=== PATIENT | female | born 1950 | race Caucasian/White ===

== ENCOUNTER 2022-12-10 07:30 | Day surgery (SDC) | payer MEDICARE, BC ==
[~2022-12-10] VITALS: Ht 177.8 cm; Wt 104.6 kg
[2022-12-10] VITALS (13 sets, daily range): BP systolic 122–151; BP diastolic 56–81
[2022-12-10] MEDS ORDERED: normal saline 1000ml 1,000 ML IV PRN (07:55)
[2022-12-10] MEDS ORDERED: NO HOME MEDS (07:59)
[2022-12-10 08:35] LABS: BASOPHILS % (AUTO) 0.7 % (0-1); EOSINOPHILS # (AUTO) 0.1 X10'3 (0-0.9); EOSINOPHILS % (AUTO) 3.5 % (0-6); HEMATOCRIT 38.7 % (35.0-45.0); HEMOGLOBIN 13.1 g/dl (12.0-16.0); LYMPHOCYTES % (AUTO) 24.9 % (21-51); MEAN CORPUSCULAR HEMOGLOBIN 32.8 PG (27.0-31.0); MEAN CORPUSCULAR HGB CONC 33.8 g/dL (33.0-36.5); MEAN CORPUSCULAR VOLUME 97.1 FL (78-98); MEAN PLATELET VOLUME 7.7 FL (7.4-10.4); MONOCYTES # (AUTO) 0.5 X10'3 (0-0.9); MONOCYTES % (AUTO) 11.6 % (2-12); NEUTROPHILS # (AUTO) 2.4 X10'3 (1.8-7.7); NEUTROPHILS % (AUTO) 59.3 % (42-75); PLATELET COUNT 173 X10'3 (140-440); RED BLOOD COUNT 3.98 X10'6 (4.20-5.60); RED CELL DISTRIBUTION WIDTH 12.9 % (11.5-14.5)
[2022-12-10 08:49] LABS: ALBUMIN 3.6 G/DL (3.4-5.0); ANION GAP 6 (8-16); BLOOD UREA NITROGEN 16 MG/DL (7-18); BUN/CREATININE RATIO 16.5 (10.0-20.0); CALCIUM 8.5 MG/DL (8.5-10.1); CHLORIDE 106 MMOL/L (99-107); CREATININE 0.97 MG/DL (0.40-0.90); GLUCOSE 98 MG/DL (70-104); POTASSIUM 4.3 MMOL/L (3.5-5.1); SODIUM 141 MMOL/L (135-145); TOTAL CARBON DIOXIDE 29.1 MMOL/L (24-32); eGFR 57 ML/MIN
[2022-12-10] MEDS ORDERED: normal saline 1000ml 1,000 ML IV SCH (10:25)
[2022-12-10] MEDS ORDERED: midazolam 1 mg/ML 2ml injection ONE (10:46)
[2022-12-10] MEDS ORDERED: fentaNYL/PF 50MCG/1 ML 2ML syringe ONE (10:46)
== END 2022-12-10 13:20 | disposition home or self-care (01) ==
LOC: SSTAY O 07:30
PROVIDERS: ATTEND Radiology Vascular & Interventional Radiology
DX: R19.09 Other intra-abdominal and pelvic swelling, mass and lump (principal); C54.1 Malignant neoplasm of endometrium; Z90.710 Acquired absence of both cervix and uterus; Z98.890 Other specified postprocedural states; Z90.722 Acquired absence of ovaries, bilateral; Z85.3 Personal history of malignant neoplasm of breast; Z88.5 Allergy status to narcotic agent; Z79.899 Other long term (current) drug therapy
CPT/HCPCS: 36415; 49180; 77012; 80048; 85025; 85610; J2250; J3010; J7030; 88305; 88341; 88342; A4615

== ENCOUNTER 2023-04-19 18:48 | Emergency (ER) | payer MEDICARE, BC ==
[~2023-04-19] VITALS: Ht 177.8 cm; Wt 92.7 kg
[~2023-04-19 18:48] MED LIST: NO HOME MEDS
[2023-04-19] MEDS ORDERED: bisacodyl 5mg tablet.DR PO PRN (20:35)
[2023-04-19] MEDS ORDERED: magnesium hydroxide 30ml (MOM) UD suspension PO ONE (20:35)
[2023-04-19] MEDS ORDERED: magnesium citrate 296ml oral solution PO ONE (21:15)
[2023-04-19 21:44] VITALS: BP 149/92; PULSE 88; RESP 16; TEMP 98.7; O2SAT 98
--- NOTE | 2023-04-19 21:44 | NUR ---
PT PRODUCED LARGE BM AFTER TAP WATER ENEMA.
--- NOTE | 2023-04-19 23:22 | NUR ---
i agree with assesment of CAD INTERN
== END 2023-04-19 21:45 | disposition home or self-care (01) ==
LOC: ER 18:49
DX: K59.00 Constipation, unspecified (principal); Z88.5 Allergy status to narcotic agent
CPT/HCPCS: 74018; 99284; J7030

== ENCOUNTER 2023-05-06 10:08 | Emergency (ER) | payer MEDICARE, BC ==
[~2023-05-06] VITALS: Ht 177.8 cm; Wt 91.1 kg
[2023-05-06 10:13] VITALS: BP 148/91; PULSE 78; RESP 16; O2SAT 100
[2023-05-06 10:53] LABS: BILIRUBIN,URINE NEGATIVE (Neg); CLARITY,URINE SLIGHTLY CLOUDY (Clear); COLOR,URINE YELLOW (Yellow); GLUCOSE, URINE NEGATIVE (Neg); KETONES,URINE NEGATIVE (Neg); LEUKOCYTE ESTERASE ,URINE MODERATE (Neg); NITRITES, URINE NEGATIVE (Neg); OCCULT BLOOD,URINE SMALL (Neg); PROTEIN,URINE NEGATIVE (Neg); UROBILINOGEN,URINE 0.2 E.U/dL (0.2-1.0)
[2023-05-06 11:07] LABS: UA COLLECTION TYPE CLN CATCH MIDSTREAM
[2023-05-06 11:08] LABS: SQUAMOUS EPITHELIAL CELL,UR MANY /LPF (FEW); WBC,URINE 50-100 /HPF (0-4)
[2023-05-06 11:09] LABS: BACTERIA,URINE 1+ /HPF (Neg); RBC,URINE 0-2 /HPF (0-2)
[2023-05-06 12:23] LABS: BASOPHILS % (AUTO) 0.3 % (0-1); EOSINOPHILS # (AUTO) 0.1 X10'3 (0-0.9); EOSINOPHILS % (AUTO) 3.3 % (0-6); HEMATOCRIT 40.1 % (35.0-45.0); HEMOGLOBIN 13.8 g/dl (12.0-16.0); LYMPHOCYTES # (AUTO) 1.1 X10'3 (1.1-4.8); MEAN CORPUSCULAR HEMOGLOBIN 34.1 PG (27.0-31.0); MEAN CORPUSCULAR HGB CONC 34.4 g/dL (33.0-36.5); MEAN CORPUSCULAR VOLUME 99.1 FL (78-98); MEAN PLATELET VOLUME 7.9 FL (7.4-10.4); MONOCYTES # (AUTO) 0.3 X10'3 (0-0.9); MONOCYTES % (AUTO) 8.3 % (2-12); NEUTROPHILS # (AUTO) 2.5 X10'3 (1.8-7.7); NEUTROPHILS % (AUTO) 62.1 % (42-75); PLATELET COUNT 185 X10'3 (140-440); RED BLOOD COUNT 4.05 X10'6 (4.20-5.60); RED CELL DISTRIBUTION WIDTH 15.4 % (11.5-14.5)
[2023-05-06 12:36] LABS: ALANINE AMINOTRANSFERASE 29 U/L (12-78); ALBUMIN 3.8 G/DL (3.4-5.0); ALKALINE PHOSPHATASE 80 IU/L (46-116); ANION GAP 8 (8-16); ASPARTATE AMINO TRANSFERASE 30 U/L (10-37); BILIRUBIN,TOTAL 0.7 MG/DL (0.1-1.0); BLOOD UREA NITROGEN 8 MG/DL (7-18); BUN/CREATININE RATIO 7.8 (10.0-20.0); CALCIUM 9.3 MG/DL (8.5-10.1); CHLORIDE 103 MMOL/L (99-107); CREATININE 1.02 MG/DL (0.40-0.90); GLUCOSE 94 MG/DL (70-104); LIPASE 43 U/L (16-77); POTASSIUM 3.3 MMOL/L (3.5-5.1); SODIUM 140 MMOL/L (135-145); TOTAL CARBON DIOXIDE 28.7 MMOL/L (24-32); TOTAL PROTEIN 7.8 G/DL (6.4-8.2); eCRCL 55 ML/MIN; eGFR 53 ML/MIN
[2023-05-06] MEDS ORDERED: HYDR-3965 PO (15:10)
[2023-05-06] MEDS ORDERED: CIPR-202 PO (15:10)
[2023-05-06 18:06] VITALS: TEMP 96.5
== END 2023-05-06 18:08 | disposition home or self-care (01) ==
LOC: ER 10:09
DX: N39.0 Urinary tract infection, site not specified (principal); N13.30 Unspecified hydronephrosis; E03.9 Hypothyroidism, unspecified; Z88.5 Allergy status to narcotic agent; Z79.2 Long term (current) use of antibiotics; Z90.710 Acquired absence of both cervix and uterus
CPT/HCPCS: 36415; 74176; 80053; 81001; 83690; 85025; 99284

== ENCOUNTER 2023-07-12 12:36 | Emergency (ER) | payer MEDICARE, BC ==
[~2023-07-12] VITALS: Ht 177.8 cm; Wt 83.4 kg
[2023-07-12 12:42] VITALS: TEMP 97.6
[2023-07-12 14:51] LABS: BASOPHILS % (AUTO) 0.4 % (0-1); EOSINOPHILS # (AUTO) 0.1 X10'3 (0-0.9); EOSINOPHILS % (AUTO) 2.4 % (0-6); HEMATOCRIT 42.4 % (35.0-45.0); HEMOGLOBIN 14.5 g/dl (12.0-16.0); LYMPHOCYTES # (AUTO) 0.8 X10'3 (1.1-4.8); LYMPHOCYTES % (AUTO) 13.5 % (21-51); MEAN CORPUSCULAR HEMOGLOBIN 34.1 PG (27.0-31.0); MEAN CORPUSCULAR HGB CONC 34.2 g/dL (33.0-36.5); MEAN CORPUSCULAR VOLUME 99.8 FL (78-98); MONOCYTES # (AUTO) 0.7 X10'3 (0-0.9); MONOCYTES % (AUTO) 12.3 % (2-12); NEUTROPHILS # (AUTO) 4.3 X10'3 (1.8-7.7); NEUTROPHILS % (AUTO) 71.4 % (42-75); PLATELET COUNT 184 X10'3 (140-440); RED BLOOD COUNT 4.25 X10'6 (4.20-5.60); RED CELL DISTRIBUTION WIDTH 13.9 % (11.5-14.5)
[2023-07-12 15:39] VITALS: BP 125/80; PULSE 88; RESP 18; O2SAT 100
== END 2023-07-12 15:41 | disposition home or self-care (01) ==
LOC: ER 12:37
DX: N89.8 Other specified noninflammatory disorders of vagina (principal); E03.9 Hypothyroidism, unspecified; Z88.5 Allergy status to narcotic agent; Z79.899 Other long term (current) drug therapy
CPT/HCPCS: 36415; 85025; 99283

== ENCOUNTER 2023-07-27 11:04 | Inpatient (IN) | payer MEDICARE, BC ==
[~2023-07-27] VITALS: Ht 177.8 cm; Wt 81.8 kg
[2023-07-27] MEDS: HYDROmorphone 1 mg/ml syringe IV ONE ×2 (12:04→15:38)
[2023-07-27 12:28] LABS: ANION GAP 14 (8-16); BLOOD UREA NITROGEN 35 MG/DL (7-18); BUN/CREATININE RATIO 26.5 (10.0-20.0); CALCIUM 9.8 MG/DL (8.5-10.1); CHLORIDE 89 MMOL/L (99-107); CREATININE 1.32 MG/DL (0.40-0.90); GLUCOSE 159 MG/DL (70-104); LIPASE 47 U/L (16-77); SODIUM 134 MMOL/L (135-145); eCRCL 42 ML/MIN; eGFR 40 ML/MIN
[2023-07-27 12:30] LABS: EOSINOPHILS % (AUTO) 0.2 % (0-6); LYMPHOCYTES # (AUTO) 0.8 X10'3 (1.1-4.8); MEAN PLATELET VOLUME 8.3 FL (7.4-10.4); RED CELL DISTRIBUTION WIDTH 13.5 % (11.5-14.5)
[2023-07-27 12:33] LABS: BASOPHILS % (AUTO) 0.3 % (0-1); HEMATOCRIT 43.9 % (35.0-45.0); HEMOGLOBIN 15.1 g/dl (12.0-16.0); LYMPHOCYTES % (AUTO) 15.4 % (21-51); MEAN CORPUSCULAR HEMOGLOBIN 34.1 PG (27.0-31.0); MEAN CORPUSCULAR HGB CONC 34.4 g/dL (33.0-36.5); MEAN CORPUSCULAR VOLUME 99.4 FL (78-98); MONOCYTES # (AUTO) 0.4 X10'3 (0-0.9); MONOCYTES % (AUTO) 8.4 % (2-12); NEUTROPHILS % (AUTO) 75.7 % (42-75); PLATELET COUNT 325 X10'3 (140-440); RED BLOOD COUNT 4.42 X10'6 (4.20-5.60); WHITE BLOOD COUNT 5.2 X10'3 (4.5-11.0)
[2023-07-27] MEDS: normal saline 1000ML IV soln IVB ONE (12:59)
[2023-07-27 13:10] LABS: ALANINE AMINOTRANSFERASE 24 U/L (12-78); ALBUMIN/GLOBULIN RATIO 0.6 (1.1-1.5); ALKALINE PHOSPHATASE 186 IU/L (46-116); ASPARTATE AMINO TRANSFERASE 25 U/L (10-37); BILIRUBIN,DIRECT 0.3 MG/DL (0-0.3)
[2023-07-27] MEDS ORDERED: iohexol 300mg/ml 100ml inj. ONE (13:41)
[2023-07-27] MEDS: normal saline 1000ML IV soln IV ONE (14:30)
[2023-07-27] MEDS: piperacillin/tazo 3.375gm/50ml 50 ML IV ONE (14:31)
[2023-07-27] MEDS ORDERED: LENV10CA PO (14:49)
[2023-07-27] MEDS: CefTRIAXone 2gm/D5W 50ml BAG 50 ML IV ONE (15:49)
[2023-07-27] MEDS ORDERED: ondansetron/PF 4mg/2ml inj IV PRN (16:45)
[2023-07-27] MEDS ORDERED: HYDROcodone/acetaminophen 10/325mg tab PO PRN (16:45)
[2023-07-27] MEDS ORDERED: magnesium 2GM in 50ml NS 50 ML IV PRN (16:45)
[2023-07-27] MEDS ORDERED: acetaminophen 325mg tablet PO PRN ×2 (16:45)
[2023-07-27] MEDS ORDERED: potassium Cl 20 mEq SR tablet PO PRN ×2 (16:45)
[2023-07-27] MEDS ORDERED: magnesium 4gm in 100ml NS 100 ML IV PRN (16:45)
[2023-07-27] MEDS ORDERED: HYDROcodone/acetaminophen 5mg/325mg tablet PO PRN (16:45)
[2023-07-27] MEDS ORDERED: morphine 2 MG/ML inj. syringe IV PRN (16:45)
[2023-07-27] MEDS ORDERED: potassium Cl 40MEQ/1/2NS 520ml 520 ML IV PRN (16:45)
[2023-07-27] MEDS ORDERED: magnesium Cl slow-release 64mg tablet PO PRN (16:45)
[2023-07-27] MEDS: normal saline 1000ml 1,000 ML IV SCH (16:58)
[2023-07-27] MEDS: heparin, porcine 5000 units/ml vial SQ SCH (20:01)
[2023-07-27 21:15] VITALS: BP 126/79; PULSE 119; RESP 19; TEMP 97.3; O2SAT 97
[2023-07-27 21:30] VITALS: RESP 19; O2SAT 96
[2023-07-27] MEDS: morphine 2 MG/ML inj. syringe IV PRN (22:34)
[2023-07-27] MEDS: temazepam 15mg capsule PO PRN (23:56)
[2023-07-28 06:00] VITALS: BP 130/50; PULSE 107; RESP 16; TEMP 97.7; O2SAT 99
[2023-07-28 06:09] LABS: BASOPHILS % (AUTO) 0.1 % (0-1); EOSINOPHILS % (AUTO) 0 % (0-6); HEMOGLOBIN 13.8 g/dl (12.0-16.0); LYMPHOCYTES # (AUTO) 0.6 X10'3 (1.1-4.8); LYMPHOCYTES % (AUTO) 10.8 % (21-51); MEAN CORPUSCULAR HEMOGLOBIN 33.7 PG (27.0-31.0); MEAN CORPUSCULAR HGB CONC 33.7 g/dL (33.0-36.5); MEAN CORPUSCULAR VOLUME 100.1 FL (78-98); MEAN PLATELET VOLUME 8.1 FL (7.4-10.4); MONOCYTES # (AUTO) 0.5 X10'3 (0-0.9); NEUTROPHILS # (AUTO) 4.4 X10'3 (1.8-7.7); NEUTROPHILS % (AUTO) 80.1 % (42-75); PLATELET COUNT 269 X10'3 (140-440); RED CELL DISTRIBUTION WIDTH 13.7 % (11.5-14.5); WHITE BLOOD COUNT 5.5 X10'3 (4.5-11.0)
[2023-07-28 06:33] LABS: ALANINE AMINOTRANSFERASE 22 U/L (12-78); ALBUMIN 2.1 G/DL (3.4-5.0); ALBUMIN/GLOBULIN RATIO 0.5 (1.1-1.5); ALKALINE PHOSPHATASE 140 IU/L (46-116); ANION GAP 10 (8-16); ASPARTATE AMINO TRANSFERASE 21 U/L (10-37); BILIRUBIN,TOTAL 1.1 MG/DL (0.1-1.0); BLOOD UREA NITROGEN 30 MG/DL (7-18); BUN/CREATININE RATIO 30.6 (10.0-20.0); CHLORIDE 100 MMOL/L (99-107); CREATININE 0.98 MG/DL (0.40-0.90); GLUCOSE 110 MG/DL (70-104); POTASSIUM 3.7 MMOL/L (3.5-5.1); SODIUM 137 MMOL/L (135-145); TOTAL CARBON DIOXIDE 27.2 MMOL/L (24-32); TOTAL PROTEIN 6.2 G/DL (6.4-8.2); eCRCL 57 ML/MIN; eGFR 56 ML/MIN
[2023-07-28] MEDS ORDERED: CefTRIAXone 2gm/D5W 50ml BAG 50 ML IV SCH (08:00)
== END 2023-07-28 10:46 | disposition left against medical advice (07) | DRG 445 ==
LOC: ER 11:04 → ED HOLD 16:48 → ORTHO 4S 21:18
PROVIDERS: ADMIT Internal Medicine; ATTEND Internal Medicine
PROC: BW211ZZ Computerized Tomography (CT Scan) of Abdomen and Pelvis using Low Osmolar Contrast (ICD-10-PCS; principal; 2023-07-27)
PROC: 0D9670Z Drainage of Stomach with Drainage Device, Via Natural or Artificial Opening (ICD-10-PCS; 2023-07-27)
DX: K80.00 Calculus of gallbladder with acute cholecystitis without obstruction (principal); K56.699 Other intestinal obstruction unspecified as to partial versus complete obstruction; N39.0 Urinary tract infection, site not specified; R18.8 Other ascites; Z66 Do not resuscitate; C54.1 Malignant neoplasm of endometrium; Z53.29 Procedure and treatment not carried out because of patient's decision for other reasons; E03.9 Hypothyroidism, unspecified; Z92.3 Personal history of irradiation; Z92.21 Personal history of antineoplastic chemotherapy; Z90.710 Acquired absence of both cervix and uterus; Z88.5 Allergy status to narcotic agent
CPT/HCPCS: 36415; 71045; 74177; 80048; 80053; 80076; 83605; 83690; 84145; 85025; 87040; 87081; 99291; A4615; G0378; J0696; J1170; J1644; J2270; J2543; J3490; J7030; Q9967